=== PATIENT | male | born 1985 | race Caucasian/White ===

== ENCOUNTER 2016-11-03 09:18 | Day surgery (SDC) | payer BC ==
[~2016-11-03] VITALS: Ht 175.3 cm; Wt 88.5 kg
[~2016-11-03 09:18] MED LIST: ADDERALL 10 MG10 MG PO
[2016-11-03 09:50] VITALS: BP 145/78; Ht 175.3 cm; Wt 88.5 kg
[2016-11-03] MEDS ORDERED: HYDROCODONE-APA1 TAB PO (13:18)
--- NOTE | 2016-11-03 16:22 | NUR ---
1500 IV DC WITH CATHER TIP INTACT
--- NOTE | 2016-11-07 14:52 | OP ---
PATIENT NAME: ABISAI KYLE MEDICAL RECORD: [id number] :83 LOCATION:[facility] ADMISSION DATE: SURGEON: LINK SCHAFFER MD DATE OF OPERATION: 11/03/2016 PREOPERATIVE DIAGNOSIS: SLAP lesion on the right shoulder with impingement syndrome. POSTOPERATIVE DIAGNOSES: SLAP lesion on the right shoulder with impingement syndrome. PROCEDURES: 1. Arthroscopic SLAP repair, right shoulder. 2. Arthroscopic distal clavicle excision of the right shoulder. 3. Arthroscopic subacromial decompression, left shoulder. SURGEON: Link Schaffer MD. ANESTHESIA: General. INTRAOPERATIVE COMPLICATIONS: None. SUMMARY OF PATHOLOGIC FINDINGS: The patient had an anterior labral tear consistent with preoperative diagnosis with substantial tearing of the labrum requiring debridement of the labrum and reapproximation of the residual. The patient did have mild biceps tendinitis. Also, the patient had an impingement syndrome with downward sloping acromion with excoriation of the coracoacromial ligament as well as AC arthropathy. OPERATIVE SUMMARY IN DETAIL: After obtaining the appropriate preoperative orthopedic surgery consent as well as anesthetic consultation, evaluation and clearance, the patient was brought to the operating room and placed on the operating table in supine position. After general laryngeal mask was administered, the patient was placed in left lateral decubitus position. All pressure points were well padded to include down leg peroneal pad as well as axillary roll. The patient was held firmly to the operating table using the vacuum pack suction system. Right upper extremity and shoulder were prepped and draped in routine sterile fashion. The arm was held in the [employer] traction boom at 30 degrees of abduction with 10 pounds of traction laterally. Arthroscopy established in the glenohumeral joint from a posterior portal. Anterior portal was established in the anterior safe interval. Diagnostic arthroscopy did reveal the above findings. Intraoperative photographs were taken. Debridement was carried out on the front and just underneath the bicipital labral complex where the tear was, the superior and anterior aspect of the glenoid rim were prepared for reapproximation. Arthrex lasso system was used to pull Fiber[employer]ape doubled at the 1 o'clock and 2:30 position. They were anchored there with a 2.9 PushLock from [employer] with good reapproximation of the labrum. Having completed this, attention was turned to the subacromial space. While on the subacromial space, the Mehama tissue ablation system was utilized to denude the undersurface of the acromion of all soft tissue elements and released coracoacromial ligament. A 5-0 barrel grabiel was used to perform acromioplasty at the level of acromioclavicular joint. Lastly, a separate arthroscopic portal anteriorly distal clavicle was excised for 1 cm and the osteophytes of the acromial side of the AC joint were taken down as well. The residual bursa was taken down anteriorly, posteriorly, laterally as well as OPERATIVE REPORT [id number] ABISAI KYLE superiorly. At this point, arthroscopy portals were closed in routine interrupted fashion using 4-0 Prolene. Sterile dressings were applied. The patient was awakened, taken to recovery in stable condition. All final needle and sponge counts were correct. TRANSINT:[id number] Voice Confirmation ID: [id number] DOCUMENT ID: [id number] SARBJIT MERCADO, LINK VAUGHN at 1452 CC: [id number] DICTATION DATE: 11/03/16 1322 CLINICAL NURSING DIRECTOR: 11/03/16 2042 DEP SDC 11/03/[address] [facility] [address] [place] [address]
== END 2016-11-03 15:55 | disposition home or self-care (01) ==
LOC: D.OPS 09:18 → D.PAN 11:45 → D.OPS 12:15
DX: S43.431A Superior glenoid labrum lesion of right shoulder, initial encounter (principal); M75.41 Impingement syndrome of right shoulder